=== PATIENT | male | born 1965 | race Caucasian/White ===

== ENCOUNTER 2023-06-03 17:17 | Inpatient (IN) ==
[2023-06-03] MEDS ORDERED: Nicotine PATCH 14 MG/24 HR PATCH TRANSDERM ONE (20:21)
[2023-06-03] MEDS ORDERED: Insulin GLARGINE 100 un/ml 10 ml VIAL SUBCUT ONE (22:25)
[2023-06-04] MEDS ORDERED: Al Hydrox/Mg Hydrox/Simet LIQ 30 ML UDC PO PRN (11:48)
[2023-06-04] MEDS ORDERED: Thiamine 100 MG/ML 2 ml VIAL (200 mg) IM ONE (11:53)
[2023-06-04] MEDS ORDERED: Dextrose 50% Syringe 50 ml 25 GM/50 ML SYRINGE IV PUSH PRN (14:00)
[2023-06-04] MEDS ORDERED: Glucose ORAL 15 GM TUBE PO ONE (15:24)
[2023-06-04] MEDS ORDERED: Glucose ORAL 15 GM TUBE PO PRN (15:27)
[2023-06-04] MEDS: Nicotine PATCH 21 MG/24 HR PATCH TRANSDERM SCH (16:21)
[2023-06-04] MEDS: Nicotine Lozenge mini 4 MG LOZNG.MINI MT PRN ×2 (16:21→21:24)
[2023-06-04] MEDS ORDERED: Albuterol HFA INHALER 8 gm MDI INH PRN (17:14)
[2023-06-04] MEDS: Insulin GLARGINE 100 un/ml 10 ml VIAL SUBCUT SCH (21:23)
[2023-06-05 08:16] LABS: Albumin 3.8 g/dL (3.2-5.2); Albumin/Globulin Ratio 1.5 (1-3); Calcium 8.9 mg/dL (8.6-10.3); Creatinine, Serum 0.92 mg/dL (0.67-1.17); Globulin 2.6 g/dL (2-4); Potassium 4.1 mmol/L (3.5-5.0); Total Bilirubin 0.4 mg/dL (0.2-1.0); Total Protein 6.4 g/dL (6.4-8.9)
[2023-06-05] MEDS: Nicotine PATCH 21 MG/24 HR PATCH TRANSDERM SCH (08:20)
[2023-06-05] MEDS: Multivitamins/Minerals TAB PO SCH (08:20)
[2023-06-05] MEDS ORDERED: Nicotine PATCH 14 MG/24 HR PATCH TRANSDERM SCH (09:00)
[2023-06-05] MEDS: Nicotine Lozenge mini 4 MG LOZNG.MINI MT PRN ×3 (12:25→21:26)
[2023-06-05] MEDS: Insulin GLARGINE 100 un/ml 10 ml VIAL SUBCUT SCH (21:24)
[2023-06-06] MEDS ORDERED: Dextrose 50% Syringe 50 ml 25 GM/50 ML SYRINGE IV PUSH PRN ×3 (01:12→15:34)
[2023-06-06] MEDS: Nicotine PATCH 21 MG/24 HR PATCH TRANSDERM SCH (08:19)
[2023-06-06] MEDS: Nicotine Lozenge mini 4 MG LOZNG.MINI MT PRN ×3 (08:20→21:15)
[2023-06-06] MEDS: Multivitamins/Minerals TAB PO SCH (08:20)
[2023-06-06] MEDS ORDERED: Insulin GLARGINE 100 un/ml 10 ml VIAL SUBCUT SCH ×2 (21:00)
[2023-06-07] MEDS: Multivitamins/Minerals TAB PO SCH (08:57)
[2023-06-07] MEDS: Nicotine PATCH 21 MG/24 HR PATCH TRANSDERM SCH (08:58)
[2023-06-07] MEDS: Nicotine GUM 4MG FRUIT FLAVOR PO PRN (11:28)
[2023-06-07] MEDS: Nicotine Lozenge mini 4 MG LOZNG.MINI MT PRN (15:20)
[2023-06-07] MEDS ORDERED: Insulin GLARGINE 100 un/ml 10 ml VIAL SUBCUT SCH (21:00)
[2023-06-08] MEDS: Multivitamins/Minerals TAB PO SCH (08:27)
[2023-06-08 08:28] LABS: Calcium 9.4 mg/dL (8.6-10.3); Creatinine, Serum 1.07 mg/dL (0.67-1.17); Potassium 4.4 mmol/L (3.5-5.0); eGFR CKD-EPI 80.9 (>60)
[2023-06-08] MEDS: Nicotine PATCH 21 MG/24 HR PATCH TRANSDERM SCH (08:29)
[2023-06-08] MEDS: Nicotine Lozenge mini 4 MG LOZNG.MINI MT PRN ×2 (10:59→20:27)
[2023-06-08] MEDS: Nicotine GUM 4MG FRUIT FLAVOR PO PRN (15:50)
[2023-06-08] MEDS: Insulin GLARGINE 100 un/ml 10 ml VIAL SUBCUT SCH (20:23)
[2023-06-09] MEDS: Nicotine PATCH 21 MG/24 HR PATCH TRANSDERM SCH (08:34)
[2023-06-09] MEDS: Multivitamins/Minerals TAB PO SCH (08:35)
[2023-06-09] MEDS: Nicotine GUM 4MG FRUIT FLAVOR PO PRN ×3 (10:47→20:35)
[2023-06-09] MEDS: Nicotine Lozenge mini 4 MG LOZNG.MINI MT PRN (13:53)
[2023-06-09 14:11] VITALS: BP 150/93
[2023-06-09] MEDS: Insulin GLARGINE 100 un/ml 10 ml VIAL SUBCUT SCH (20:06)
[2023-06-10] MEDS: Nicotine PATCH 21 MG/24 HR PATCH TRANSDERM SCH (08:26)
[2023-06-10] MEDS: Multivitamins/Minerals TAB PO SCH (08:26)
== END 2023-06-10 09:40 | disposition home or self-care (01) | DRG 775 ==
LOC: ED 17:17 → EDHOLD 06-04 11:48 → BSU 06-04 12:53
PROVIDERS: ADMIT Psychiatry & Neurology Psychiatry; ATTEND Psychiatry & Neurology Psychiatry